=== PATIENT | male | born 1990 | race African-American/Black ===

== ENCOUNTER 2016-12-04 13:36 | Emergency (ER) | payer MEDICAID, OTHER ==
[~2016-12-04] VITALS: Ht 180.3 cm; Wt 79.5 kg
[~2016-12-04 13:36] MED LIST: NOCURR
[2016-12-04 15:03] VITALS: BP 121/69
== END 2016-12-04 15:52 | disposition home or self-care (01) ==
LOC: EMS 13:38
DX: K64.4 Residual hemorrhoidal skin tags (principal)
CPT/HCPCS: 99283

== ENCOUNTER 2019-03-14 14:50 | Emergency (ER) | payer MEDICAID ==
[~2019-03-14] VITALS: Ht 183.5 cm; Wt 95.5 kg
[2019-03-14] MEDS ORDERED: ELVI1TAB3 PO (15:25)
[2019-03-14 16:37] VITALS: BP 124/77
[2019-03-14] MEDS ORDERED: CefTRIAXone SODIUM 1 GM/VIAL IM ONE (17:15)
[2019-03-14] MEDS ORDERED: AZITHROMYCIN 250 MG TABLET PO ONE (17:15)
== END 2019-03-14 17:34 | disposition home or self-care (01) ==
LOC: EMS 14:52
DX: S80.12XA Contusion of left lower leg, initial encounter (principal); A64 Unspecified sexually transmitted disease; A54.9 Gonococcal infection, unspecified; V23.4XXA Motorcycle driver injured in collision with car, pick-up truck or van in traffic accident, initial encounter; Y93.55 Activity, bike riding; Y92.89 Other specified places as the place of occurrence of the external cause; Y99.8 Other external cause status
CPT/HCPCS: 70450; 73590; 96372; 99284; J0696

== ENCOUNTER 2021-03-05 22:48 | Emergency (ER) | payer MEDICAID ==
[~2021-03-05] VITALS: Ht 182.9 cm; Wt 108.6 kg
[~2021-03-05 22:48] MED LIST changes: +ELVI1TAB3 PO; -NOCURR
[2021-03-05 22:51] VITALS: BP 149/75
[2021-03-05] MEDS ORDERED: FAMO20 PO (23:03)
[2021-03-05] MEDS ORDERED: CIPR250T6 PO (23:03)
[2021-03-05] MEDS ORDERED: METR250 PO (23:03)
== END 2021-03-06 00:15 | disposition left against medical advice (07) ==
LOC: EMS 22:49
DX: L02.91 Cutaneous abscess, unspecified (principal); Z53.21 Procedure and treatment not carried out due to patient leaving prior to being seen by health care provider

== ENCOUNTER 2021-11-01 19:22 | Inpatient (IN) | payer MEDICAID ==
[~2021-11-01] VITALS: Ht 182.9 cm; Wt 116.1 kg
[~2021-11-01 19:22] MED LIST changes: +CIPR250T6 PO; +FAMO20 PO; +METR250 PO
[2021-11-01] MEDS ORDERED: LORazepam 2 MG/ML VIAL ONE (19:33)
[2021-11-01] MEDS ORDERED: DiphenhydrAMINE HCL 50 MG/ML VIAL ONE (19:34)
[2021-11-01] MEDS ORDERED: HALOPERIDOL LACTATE 5 MG/ML VIAL ONE (19:34)
[2021-11-01] MEDS ORDERED: HALOPERIDOL LACTATE 5 MG/ML VIAL IM ONE (19:45)
[2021-11-01] MEDS ORDERED: LORazepam 2 MG/ML VIAL IM ONE (19:45)
[2021-11-01] MEDS ORDERED: DiphenhydrAMINE HCL 50 MG/ML VIAL IM ONE (19:45)
[2021-11-01 20:06] LABS: COVID AG,FIA SOURCE NASOPHARYNGEAL
[2021-11-01 20:31] LABS: BASOPHILS % (AUTO) 0.6 % (0.0-2.0); EOSINOPHILS % (AUTO) 0 % (1.0-6.0); LYMPHOCYTES # (AUTO) 0.9 K/uL (1.0-4.8); LYMPHOCYTES % (AUTO) 17.7 % (22.0-44.0); MEAN CORPUSCULAR HEMOGLOBIN 30.5 pg (26.0-34.0); MEAN CORPUSCULAR HGB CONC 33.4 G/dL (31.0-37.0); MEAN CORPUSCULAR VOLUME 91 fL (80-100); MONOCYTES # (AUTO) 0.4 K/uL (0.1-1.0); MONOCYTES % (AUTO) 7.2 % (2.0-9.0); NEUTROPHILS # (AUTO) 3.6 K/uL (1.8-7.7); NEUTROPHILS % (AUTO) 74.5 % (40.0-70.0); PLATELET COUNT (AUTO) 302 K/uL (150-450); RED BLOOD CELL COUNT(AUTO) 4.27 MIL/uL (4.50-5.90); RED CELL DISTRIBUTION WIDTH 13.5 % (11.5-14.5)
[2021-11-01 20:40] LABS: ANION GAP 8 mmol/L (8-16); CALCIUM, TOTAL 9.2 mg/dL (8.8-10.5); CARBON DIOXIDE 27 mmol/L (22-29); CHLORIDE 103 mmol/L (98-107); CREATININE 1.58 mg/dL (0.60-1.30); GLUCOSE,RANDOM 86 mg/dL (70-110); POTASSIUM 3.3 mmol/L (3.5-5.1); SODIUM SERUM 138 mmol/L (136-145); UREA NITROGEN, BLOOD 10 mg/dL (7-18)
[2021-11-01 20:41] LABS: GLOMERULAR FILTR. RATE CALC > 60 mL/min (>60)
[2021-11-01 20:46] LABS: ALANINE AMINOTRANSFERASE 24 U/L (12-78); ALBUMIN 4.3 g/dL (3.4-5.0); ALKALINE PHOSPHATASE 121 U/L (46-116); ASPARTATE AMINOTRANSFERASE 20 U/L (15-37); BILIRUBIN,TOTAL 0.2 mg/dL (0.1-1.0); TOTAL PROTEIN, SERUM 8.4 g/dL (6.4-8.2)
[2021-11-02] MEDS ORDERED: POTASSIUM CHLORIDE 10% 40 MEQ/30 ML LIQUID UDCUP PO ONE (01:45)
[2021-11-02] MEDS ORDERED: DiphenhydrAMINE HCL 50 MG/ML VIAL IM ONE (01:45)
[2021-11-02] MEDS ORDERED: HALOPERIDOL LACTATE 5 MG/ML VIAL IM ONE (01:45)
[2021-11-02] MEDS ORDERED: LORazepam 2 MG/ML VIAL IM ONE (01:45)
[2021-11-02] MEDS ORDERED: ZOLPIDEM TARTRATE 10 MG TABLET PO PRN (03:00)
[2021-11-02] MEDS ORDERED: LORazepam 2 MG TABLET PO PRN (03:00)
[2021-11-02] MEDS ORDERED: OLANZapine 5 MG RAPDIS TABLET PO PRN (03:00)
[2021-11-02 09:18] VITALS: BP 109/60
[2021-11-02] MEDS ORDERED: PNEUMOCOCCAL VACCINE POLYVALENT 0.5 ML VIAL [PPSV23] IM. ONE (11:00)
[2021-11-02] MEDS ORDERED: INFLUENZA VIRUS VACCINE QVS 2021-22 (6MO+)/PF 60 MCG/0.5 ML SYRINGE IM. ONE (11:00)
[2021-11-02] MEDS ORDERED: BICT1TAB PO (11:23)
[2021-11-02] MEDS ORDERED: TRAZ-252 PO (11:23)
[2021-11-02] MEDS ORDERED: TUBERCULIN, PURIFIED PROTEIN DERIVATIVE 5 TU/0.1 ML SYRINGE ID ONE (14:15)
[2021-11-02] MEDS ORDERED: PROMETHAZINE HCL 25 MG TABLET PO PRN (14:15)
[2021-11-02] MEDS ORDERED: GuaiFENesin/D-METHORPHAN [SUGAR-FREE] 200-20MG/10 ML SYRUP UDCUP PO PRN (14:15)
[2021-11-02] MEDS: THIAMINE 100 MG TABLET PO SCH (17:00)
[2021-11-02] MEDS: DIVALPROEX SODIUM 250 MG ER TABLET PO SCH (21:00)
[2021-11-02] MEDS: OLANZapine 5 MG RAPDIS TABLET PO SCH (21:00)
[2021-11-02] MEDS: MELATONIN 5 MG TABLET PO SCH (21:00)
[2021-11-03] MEDS ORDERED: ELVITEG/COB/EMTRI/TENOF ALAFEN 150-150-200-10MG TABLET PO SCH (07:30)
[2021-11-03] MEDS: NALTREXONE HCL 50 MG TABLET PO SCH ×2 (08:33→09:00)
[2021-11-03] MEDS: BICTEGRAV/EMTRICIT/TENOFOV ALA 50-200-25 MG TABLET PO SCH ×2 (08:33→09:00)
[2021-11-03] MEDS: OMEGA-3/DHA/EPA/FISH OIL 1,000 MG CAPSULE PO SCH ×2 (08:35→09:00)
[2021-11-03] MEDS: MULTIVITAMINS WITH MINERALS, THERAPEUTIC TABLET PO SCH ×2 (08:35→09:00)
[2021-11-03] MEDS: FOLIC ACID 1 MG TABLET PO SCH ×2 (08:35→09:00)
[2021-11-03] MEDS: THIAMINE 100 MG TABLET PO SCH ×3 (08:35→17:00)
[2021-11-03 16:37] VITALS: BP 134/83
[2021-11-03] MEDS: DIVALPROEX SODIUM 250 MG ER TABLET PO SCH (21:00)
[2021-11-03] MEDS: MELATONIN 5 MG TABLET PO SCH (21:00)
[2021-11-03] MEDS: OLANZapine 5 MG RAPDIS TABLET PO SCH (21:00)
[2021-11-04] MEDS: FOLIC ACID 1 MG TABLET PO SCH (09:00)
[2021-11-04] MEDS: NALTREXONE HCL 50 MG TABLET PO SCH (09:00)
[2021-11-04] MEDS: OMEGA-3/DHA/EPA/FISH OIL 1,000 MG CAPSULE PO SCH (09:00)
[2021-11-04] MEDS: MULTIVITAMINS WITH MINERALS, THERAPEUTIC TABLET PO SCH (09:00)
[2021-11-04] MEDS: THIAMINE 100 MG TABLET PO SCH ×2 (09:00→16:02)
[2021-11-04] MEDS: BICTEGRAV/EMTRICIT/TENOFOV ALA 50-200-25 MG TABLET PO SCH (09:01)
[2021-11-04 10:01] VITALS: BP 110/61
[2021-11-04 16:44] VITALS: BP 142/90
== END 2021-11-04 18:09 | disposition home or self-care (01) | DRG 750 ==
LOC: EMS 19:22 → 3EC 11-02 04:00
PROVIDERS: ADMIT Psychiatry & Neurology Psychiatry; ATTEND Psychiatry & Neurology Psychiatry
DX: F20.9 Schizophrenia, unspecified (principal); G93.40 Encephalopathy, unspecified; F29 Unspecified psychosis not due to a substance or known physiological condition; Z21 Asymptomatic human immunodeficiency virus [HIV] infection status; D64.9 Anemia, unspecified; E87.6 Hypokalemia; F12.90 Cannabis use, unspecified, uncomplicated; F19.10 Other psychoactive substance abuse, uncomplicated; Z20.822 Contact with and (suspected) exposure to COVID-19; R10.13 Epigastric pain; K21.9 Gastro-esophageal reflux disease without esophagitis; Z55.9 Problems related to education and literacy, unspecified; Z59.9 Problem related to housing and economic circumstances, unspecified; Z63.9 Problem related to primary support group, unspecified; Z65.3 Problems related to other legal circumstances; Z78.1 Physical restraint status
CPT/HCPCS: 80053; 85025; 99291; G0480; J1200; J1630; J2060; Q9967

== ENCOUNTER 2021-11-10 00:30 | Emergency (ER) | payer MEDICAID ==
[~2021-11-10] VITALS: Ht 182.9 cm; Wt 116.8 kg
[2021-11-10 00:45] VITALS: BP 114/56
== END 2021-11-10 04:36 | disposition left against medical advice (07) ==
LOC: EMS 00:33
DX: R55 Syncope and collapse (principal); Z53.21 Procedure and treatment not carried out due to patient leaving prior to being seen by health care provider

== ENCOUNTER 2023-07-29 19:10 | Emergency (ER) | payer MEDICAID ==
[~2023-07-29] VITALS: Ht 180.3 cm; Wt 81.0 kg
[2023-07-29] MEDS ORDERED: DiphenhydrAMINE HCL 50 MG/ML VIAL IM ONE (19:30)
[2023-07-29] MEDS ORDERED: HALOPERIDOL LACTATE 5 MG/ML VIAL IM ONE (19:30)
[2023-07-29] MEDS ORDERED: LORazepam 2 MG/ML VIAL IM ONE (19:30)
[2023-07-29 20:07] VITALS: TEMP 98.7
[2023-07-29 21:14] LABS: COVID AG,FIA SOURCE NASAL SWAB
[2023-07-29 21:31] LABS: SARS-COV2 (COVID) ANTIGEN,FIA Negative (Negative)
[2023-07-29 21:37] LABS: BASOPHILS % (AUTO) 0.5 % (0.0-2.0); EOSINOPHILS % (AUTO) 0.6 % (1.0-6.0); HEMATOCRIT 36.9 % (41-53); HEMOGLOBIN 12.6 g/dL (13.5-17.5); LYMPHOCYTES # (AUTO) 1.9 K/uL (1.0-4.8); LYMPHOCYTES % (AUTO) 21.2 % (22.0-44.0); MEAN CORPUSCULAR HGB CONC 34.1 G/dL (31.0-37.0); MEAN CORPUSCULAR VOLUME 97 fL (80-100); MONOCYTES # (AUTO) 0.9 K/uL (0.1-1.0); MONOCYTES % (AUTO) 10.1 % (2.0-9.0); NEUTROPHILS # (AUTO) 6.1 K/uL (1.8-7.7); NEUTROPHILS % (AUTO) 67.6 % (40.0-70.0); PLATELET COUNT (AUTO) 290 K/uL (150-450); RED BLOOD CELL COUNT(AUTO) 3.82 MIL/uL (4.50-5.90); RED CELL DISTRIBUTION WIDTH 12.8 % (11.5-14.5)
[2023-07-29 21:46] LABS: ANION GAP 7 mmol/L (8-16); CALCIUM, TOTAL 9.5 mg/dL (8.8-10.5); CARBON DIOXIDE 28 mmol/L (22-29); CHLORIDE 103 mmol/L (98-107); CREATININE 1.48 mg/dL (0.60-1.30); GLOMERULAR FILTR. RATE CALC > 60 mL/min (>60); GLUCOSE,RANDOM 80 mg/dL (70-110); POTASSIUM 3.6 mmol/L (3.5-5.1); SODIUM SERUM 138 mmol/L (136-145); UREA NITROGEN, BLOOD 18 mg/dL (7-18)
[2023-07-29 21:50] LABS: ALCOHOL, BLOOD (SERUM) < 3 mg/dL (0-10)
[2023-07-29 21:51] LABS: ALANINE AMINOTRANSFERASE 24 U/L (12-78); ALBUMIN 4.2 g/dL (3.4-5.0); ALKALINE PHOSPHATASE 87 U/L (46-116); ASPARTATE AMINOTRANSFERASE 25 U/L (15-37); BILIRUBIN,TOTAL 0.9 mg/dL (0.1-1.0); TOTAL PROTEIN, SERUM 7.7 g/dL (6.4-8.2)
[2023-07-30 10:30] VITALS: BP 128/79; PULSE 81; RESP 16
== END 2023-07-30 10:46 | disposition home or self-care (01) ==
LOC: EMS 19:11
DX: F25.9 Schizoaffective disorder, unspecified (principal); F69 Unspecified disorder of adult personality and behavior
CPT/HCPCS: 99291; 87426; 80053; 85025; 36415; 96372; G0480; J1200; J1630; J2060